=== PATIENT | male | born 1965 | race Caucasian/White ===

== ENCOUNTER 2024-08-08 08:58 | Emergency (ER) | payer BC ==
[2024-08-08] MEDS: Sodium Chloride 0.9% 1,000 ML IV SCH (09:19)
[2024-08-08] MEDS: Adenosine 6 MG/2 ML SDV IVPUSH ONE (09:20)
[2024-08-08] MEDS ORDERED: Sodium Chloride 0.9% 10 ML Syringe FLUSH PRN ×2 (09:31)
[2024-08-08 09:45] LABS: BASOPHILS PERCENT AUTO 0.2 % (0.0-1.0); EOSINOPHILS PERCENT AUTO 1.3 % (1.0-3.0); MEAN CORPUSCULAR VOLUME 91.2 fL (80-100); MONOCYTES PERCENT AUTO 12.9 % (2-8); NEUTROPHILS PERCENT AUTO 51.6 % (42.2-75.2); PLATELET COUNT,PLT 208 10^3/uL (150-450); RED BLOOD CELL COUNT 4.42 10^6/uL (4.6-6.2); WHITE BLOOD CELL COUNT,WBC 6.1 10^3/uL (5.0-10.0)
[2024-08-08 09:49] LABS: A/G RATIO 1.1; ALBUMIN 3.8 g/dL (3.4-5.0); ANION GAP 16.9 mEq/L (7-13); BILIRUBIN TOTAL 0.5 mg/dL (0.2-1.0); BUN/CREATININE RATIO 6.7 (No establ ref range); CALCIUM 8.5 mg/dL (8.5-10.1); CREATININE 1.2 mg/dL (0.70-1.30); EST CRCL DRUG DOSING (CG) 72.34 mL/min; POTASSIUM,K 3.9 mmol/L (3.5-5.1); PROTEIN TOTAL,TP 7.4 g/dL (6.4-8.2)
[2024-08-08 09:59] LABS: MEAN CORPUSCULAR HEMOGLOBIN 32.4 pg (27.0-34.0); MEAN CORPUSCULAR HGB CONC 35.4 g/dL (33.0-35.0)
[2024-08-08 10:00] LABS: PROTHROMBIN TIME 10.9 SEC (9.0-12.0)
[2024-08-08 11:04] LABS: HEMATOCRIT 44.1 % (40.0-54.0); HEMOGLOBIN 15.6 g/dL (14.0-18.0)
== END 2024-08-08 10:57 | disposition home or self-care (01) ==
LOC: DL.ED 08:58
DX: I47.10 Supraventricular tachycardia, unspecified (principal); F17.210 Nicotine dependence, cigarettes, uncomplicated; Z86.16 Personal history of COVID-19
CPT/HCPCS: 36415; 71045; 80053; 84484; 85025; 85610; 93005; 93010; 96361; 96374; 99284; 99285-25; J0153; J7030